=== PATIENT | male | born 1980 | race Caucasian/White ===

== ENCOUNTER 2016-08-14 23:55 | Emergency (ER) | payer MEDICAID ==
[~2016-08-14] VITALS: Ht 175.3 cm; Wt 104.3 kg
[~2016-08-14 23:55] MED LIST: ALBU17AE19 IH
[2016-08-15 00:45] VITALS: BP_SYST 144
--- NOTE | 2016-08-15 00:45 | NUR ---
Patient to ER bed 7 to gown for evaluation. Side rails up. Report given to NEEL Rapp.
--- NOTE | 2016-08-15 00:50 | NUR ---
Patient AAO x4, sitting in bed, c/o migraine HERNANDEZ x 3 days. HERNANDEZ pain 7/10 with nausea and vomiting, photophobia. Patient denies shortness of breath, denies chest pain, denies diarrhea. No acute distress noted. Will continue to monitor.
--- NOTE | 2016-08-15 01:05 | NUR ---
ER at bedside examining patient.
[2016-08-15] MEDS ORDERED: METOCLOPRAMIDE HCL 10 MG/2 ML VIAL IVP ONE (01:15)
[2016-08-15] MEDS ORDERED: NACL 0.9% 1,000 ML IV ONE (01:15)
[2016-08-15 01:27] LABS: BASOPHILS % (AUTO) 0.3 % (0.0-2.0); EOSINOPHILS # (AUTO) 0.4 K/uL (0.0-0.4); EOSINOPHILS % (AUTO) 4.8 % (0.0-4.0); HEMOGLOBIN 15.9 g/dL (14.0-18.0); LYMPHOCYTES # (AUTO) 1.2 K/uL (1.0-5.5); LYMPHOCYTES % (AUTO) 14.3 % (20.5-51.5); MEAN CORPUSCULAR HEMOGLOBIN 30 pg (27-31); MEAN CORPUSCULAR HGB CONC 32 % (32-36); MEAN CORPUSCULAR VOLUME 92 fL (79.0-98.0); MONOCYTES # (AUTO) 0.3 K/uL (0.0-1.0); MONOCYTES % (AUTO) 3.4 % (1.7-9.3); NEUTROPHILS # (AUTO) 6.6 K/uL (1.8-7.7); NEUTROPHILS % (AUTO) 77.2 % (40.0-70.0); PLATELET COUNT (AUTO) 246 K/uL (130-430); RED BLOOD CELL COUNT(AUTO) 5.32 MIL/uL (4.2-6.2); RED CELL DISTRIBUTION WIDTH 12.2 % (9.0-15.0); WHITE BLOOD COUNT (AUTO) 8.5 K/uL (4.8-10.8)
[2016-08-15 01:37] LABS: CALCIUM 9.1 mg/dL (8.4-11.0); CREATININE 1.18 mg/dL (0.55-1.30); POTASSIUM 3.8 mmol/L (3.5-5.1)
[2016-08-15 01:42] LABS: ALBUMIN 4.1 g/dL (3.4-4.8); TOTAL BILIRUBIN 0.5 mg/dL (0.0-1.0); TOTAL PROTEIN, SERUM 7.8 g/dL (6.4-8.3)
--- NOTE | 2016-08-15 02:11 | NUR ---
Patient coughing and c/o shortness of breath and feeling like he "cannot breathe" Md immediately notified, O2 via NC administered per md verbal order. Will medicate per md order.
--- NOTE | 2016-08-15 02:12 | NUR ---
Patient having allergic reaction to reglan that was administered IVP. MD aware. Medicating per md order.
[2016-08-15] MEDS ORDERED: IPRATROPIUM/ALBUTEROL SULFATE 3 ML AMPUL.NEB INH ONE (02:15)
[2016-08-15] MEDS ORDERED: EPINEPHrine 1 MG/ML AMP IM ONE (02:15)
[2016-08-15] MEDS ORDERED: DIPHENHYDRAMINE INJ 50 MG/ML VIAL IVP ONE (02:15)
[2016-08-15] MEDS ORDERED: DIPHENHYDRAMINE INJ 50 MG/ML VIAL ONE (02:16)
[2016-08-15] MEDS ORDERED: EPINEPHrine 1 MG/ML AMP ONE ×2 (02:19→02:23)
[2016-08-15] MEDS ORDERED: HYDROcodone/ACETAMIN 5-325 MG TAB (NORCO/ VICODIN) PO ONE (02:30)
[2016-08-15] MEDS ORDERED: methylPREDNISolone SOD SUCC/PF 62.5 MG/ML VIAL ONE (02:52)
--- NOTE | 2016-08-15 03:00 | NUR ---
Patient states he feels "much better" and "would like to go home, so I can sleep." Md made aware.
[2016-08-15 03:20] VITALS: BP_SYST 130
--- NOTE | 2016-08-15 03:20 | NUR ---
Patient given written and verbal discharge instructions and verbalizes understanding. ER MD discussed with patient the results and treatment provided. Patient in stable condition. ID arm band removed. IV catheter removed intact and dressing applied, no active bleeding. Rx of zofran and norco given. Patient educated on pain management and to follow up with PMD. Pain Scale 0/10. Opportunity for questions provided and answered.
== END 2016-08-15 03:20 | disposition home or self-care (01) ==
LOC: SED 23:55
DX: G43.909 Migraine, unspecified, not intractable, without status migrainosus (principal); T39.1X5A Adverse effect of 4-Aminophenol derivatives, initial encounter; J45.909 Unspecified asthma, uncomplicated; E11.9 Type 2 diabetes mellitus without complications; Z96.643 Presence of artificial hip joint, bilateral; Z88.1 Allergy status to other antibiotic agents; Z88.8 Allergy status to other drugs, medicaments and biological substances; Y92.89 Other specified places as the place of occurrence of the external cause
CPT/HCPCS: 36415; 80053; 85025; 94640; 96361; 96372; 96374; 96375; 99284; J0171; J1200; J2765; J2930; J7030

== ENCOUNTER 2017-04-19 23:56 | Emergency (ER) | payer MEDICAID ==
[~2017-04-19] VITALS: Ht 175.3 cm; Wt 104.3 kg
[2017-04-20 00:24] VITALS: BP_SYST 136
[2017-04-20] MEDS ORDERED: HYDROcodone/ACETAMIN 7.5-325 MG TAB PO ONE (02:30)
[2017-04-20 02:55] VITALS: BP_SYST 132
== END 2017-04-20 02:55 | disposition home or self-care (01) ==
LOC: SED 23:56
DX: S83.91XA Sprain of unspecified site of right knee, initial encounter (principal); J45.909 Unspecified asthma, uncomplicated; G43.909 Migraine, unspecified, not intractable, without status migrainosus; W19.XXXA Unspecified fall, initial encounter; Y93.89 Activity, other specified; Y92.89 Other specified places as the place of occurrence of the external cause; Y99.8 Other external cause status
CPT/HCPCS: 73564; 99284

== ENCOUNTER 2018-02-21 07:47 | Emergency (ER) | payer MEDICAID ==
[~2018-02-21] VITALS: Ht 175.3 cm; Wt 104.3 kg
[2018-02-21 08:03] VITALS: BP_SYST 137
[2018-02-21] MEDS ORDERED: KETOROLAC TROMETHAMINE 60 MG/2 ML VIAL IM ONE (08:30)
[2018-02-21 08:38] VITALS: BP_SYST 137
== END 2018-02-21 08:38 | disposition home or self-care (01) ==
LOC: SED 07:47
DX: M54.5 Low back pain (principal); J45.909 Unspecified asthma, uncomplicated; G43.909 Migraine, unspecified, not intractable, without status migrainosus; Z88.1 Allergy status to other antibiotic agents; Z88.8 Allergy status to other drugs, medicaments and biological substances
CPT/HCPCS: 96372; 99283; J1885

== ENCOUNTER 2018-04-06 20:24 | Emergency (ER) | payer MEDICAID ==
[~2018-04-06] VITALS: Ht 175.3 cm; Wt 104.3 kg
[2018-04-06] MEDS ORDERED: DIPHENHYDRAMINE INJ 50 MG/ML VIAL IM ONE (20:30)
[2018-04-06] MEDS ORDERED: NACL 0.9% 1,000 ML IV ONE (20:30)
[2018-04-06] MEDS ORDERED: IPRATROPIUM/ALBUTEROL SULFATE 3 ML AMPUL.NEB (DUONEB) INH ONE (20:30)
[2018-04-06] MEDS ORDERED: FAMOTIDINE PF 20 MG/2 ML VIAL IVP ONE (20:30)
[2018-04-06] MEDS ORDERED: EPINEPHrine JECT 1 MG/10 ML SYR IM ONE (20:30)
[2018-04-06] MEDS ORDERED: methylPREDNISolone SOD SUCC/PF 62.5 MG/ML VIAL IM ONE (20:30)
[2018-04-06 20:32] VITALS: BP_SYST 165
[2018-04-06] MEDS ORDERED: IPRATROPIUM/ALBUTEROL SULFATE 3 ML AMPUL.NEB (DUONEB) ONE (20:36)
[2018-04-06] MEDS ORDERED: methylPREDNISolone SOD SUCC/PF 62.5 MG/ML VIAL IVP ONE (20:45)
[2018-04-06 21:27] VITALS: BP_SYST 136
== END 2018-04-06 21:26 | disposition home or self-care (01) ==
LOC: SED 20:24
DX: T78.1XXA Other adverse food reactions, not elsewhere classified, initial encounter (principal); G43.909 Migraine, unspecified, not intractable, without status migrainosus; J45.909 Unspecified asthma, uncomplicated; Z88.1 Allergy status to other antibiotic agents; Z88.8 Allergy status to other drugs, medicaments and biological substances; X58.XXXA Exposure to other specified factors, initial encounter
CPT/HCPCS: 94640; 96372; 96374; 96375; 99283; J3490; J7030; J7620

== ENCOUNTER 2018-04-10 16:46 | Emergency (ER) | payer MEDICAID ==
[~2018-04-10] VITALS: Ht 175.3 cm; Wt 104.3 kg
[2018-04-10 17:00] VITALS: BP_SYST 152
[2018-04-10] MEDS ORDERED: HYDROcodone/ACETAMIN 10-325 MG TAB PO ONE (18:00)
[2018-04-10] MEDS ORDERED: KETOROLAC TROMETHAMINE 60 MG/2 ML VIAL IM ONE (18:00)
[2018-04-10 18:35] VITALS: BP_SYST 141
== END 2018-04-10 18:30 | disposition home or self-care (01) ==
LOC: SED 16:46
DX: S39.012A Strain of muscle, fascia and tendon of lower back, initial encounter (principal); J45.909 Unspecified asthma, uncomplicated; G43.909 Migraine, unspecified, not intractable, without status migrainosus; R03.0 Elevated blood-pressure reading, without diagnosis of hypertension; Z88.1 Allergy status to other antibiotic agents; Z88.8 Allergy status to other drugs, medicaments and biological substances; X58.XXXA Exposure to other specified factors, initial encounter; Y93.89 Activity, other specified; Y92.89 Other specified places as the place of occurrence of the external cause; Y99.8 Other external cause status
CPT/HCPCS: 96372; 99283; J1885

== ENCOUNTER 2018-05-25 17:16 | Emergency (ER) | payer MEDICAID ==
[~2018-05-25] VITALS: Ht 175.3 cm; Wt 104.3 kg
[2018-05-25 17:20] VITALS: BP_SYST 164
[2018-05-25] MEDS ORDERED: NACL 0.9% 1,000 ML IV ONE (17:45)
[2018-05-25] MEDS ORDERED: IPRATROPIUM/ALBUTEROL SULFATE 3 ML AMPUL.NEB (DUONEB) INH ONE (17:45)
[2018-05-25] MEDS ORDERED: DEXAMETHASONE SOD PHOSPHATE 10 MG/ML VIAL IM ONE (17:45)
[2018-05-25] MEDS ORDERED: MAGNESIUM SULFATE 1 GM/2 ML VIAL IVP ONE (18:15)
[2018-05-25] MEDS ORDERED: ALBUTEROL SULFATE 0.083% 2.5 MG/3 ML VIAL.NEB INH ONE ×2 (18:15→19:00)
[2018-05-25 19:16] VITALS: BP_SYST 145
== END 2018-05-25 19:15 | disposition home or self-care (01) ==
LOC: SED 17:16
DX: J45.901 Unspecified asthma with (acute) exacerbation (principal); R03.0 Elevated blood-pressure reading, without diagnosis of hypertension; G43.909 Migraine, unspecified, not intractable, without status migrainosus; Z88.1 Allergy status to other antibiotic agents; Z88.8 Allergy status to other drugs, medicaments and biological substances
CPT/HCPCS: 71045; 86710; 94640; 96374; 96375; 99285; J1100; J3475; J7030; J7613; J7620; 36415

== ENCOUNTER 2018-09-02 17:14 | Emergency (ER) | payer MEDICAID ==
[~2018-09-02] VITALS: Ht 175.3 cm; Wt 106.6 kg
[2018-09-02 17:15] VITALS: BP_SYST 152
[2018-09-02 19:28] VITALS: BP_SYST 148
== END 2018-09-02 19:28 | disposition home or self-care (01) ==
LOC: SED 17:14
DX: S83.91XA Sprain of unspecified site of right knee, initial encounter (principal); S83.92XA Sprain of unspecified site of left knee, initial encounter; S73.102A Unspecified sprain of left hip, initial encounter; J45.909 Unspecified asthma, uncomplicated; G43.909 Migraine, unspecified, not intractable, without status migrainosus; Z88.1 Allergy status to other antibiotic agents; Z88.8 Allergy status to other drugs, medicaments and biological substances; W19.XXXA Unspecified fall, initial encounter; Y93.K1 Activity, walking an animal; Y92.89 Other specified places as the place of occurrence of the external cause; Y99.8 Other external cause status
CPT/HCPCS: 73502; 73564; 99283

== ENCOUNTER 2019-08-23 20:21 | Emergency (ER) | payer MEDICAID ==
[~2019-08-23] VITALS: Ht 167.6 cm; Wt 90.7 kg
[2019-08-23 20:22] VITALS: BP_SYST 151
--- NOTE | 2019-08-23 20:25 | NUR ---
Placed in room 1 . Placed on teletypesetter monitor, blood pressure machine and pulse oximeter. To gown for exam. Side rails up.
--- NOTE | 2019-08-23 20:26 | NUR ---
Patient complains of shortness of breath all day today. Per pt, his asthma has been acting up lately and was at [facility] when he became short of breath. Pt satting at 100% RA. NO other injuries/complaints per patient or noted.
[2019-08-23] MEDS ORDERED: IPRATROPIUM/ALBUTEROL SULFATE 3 ML AMPUL.NEB (DUONEB) INH ONE (20:30)
--- NOTE | 2019-08-23 20:33 | NUR ---
RT at bedside administering breathing treatment. Pt tolerated well.
[2019-08-23 20:50] LABS: BASOPHILS # (AUTO) 0.1 K/uL (0.0-0.2); EOSINOPHILS # (AUTO) 0.5 K/uL (0.0-0.4); EOSINOPHILS % (AUTO) 7.2 % (0.0-4.0); HEMATOCRIT 44.9 % (36-54); HEMOGLOBIN 15.1 g/dL (14.0-18.0); LYMPHOCYTES # (AUTO) 2.8 K/uL (1.0-5.5); LYMPHOCYTES % (AUTO) 39.5 % (20.5-51.5); MEAN CORPUSCULAR HEMOGLOBIN 31 pg (27-31); MEAN CORPUSCULAR HGB CONC 34 % (32-36); MEAN CORPUSCULAR VOLUME 92 fL (79.0-98.0); MONOCYTES # (AUTO) 0.4 K/uL (0.0-1.0); MONOCYTES % (AUTO) 5.6 % (1.7-9.3); NEUTROPHILS # (AUTO) 3.3 K/uL (1.8-7.7); NEUTROPHILS % (AUTO) 46.7 % (40.0-70.0); PLATELET COUNT (AUTO) 223 K/uL (130-430); RED BLOOD CELL COUNT(AUTO) 4.87 MIL/uL (4.2-6.2); RED CELL DISTRIBUTION WIDTH 13.1 % (9.0-15.0); WHITE BLOOD COUNT (AUTO) 7.1 K/uL (4.8-10.8)
--- NOTE | 2019-08-23 20:58 | NUR ---
ER Dr. Beebe at bedside examining patient.
[2019-08-23 21:11] LABS: CALCIUM 8.4 mg/dL (8.4-11.0); CREATININE 1.34 mg/dL (0.55-1.30); PROTHROMBIN TIME 9.9 SECS (9.5-12.5)
[2019-08-23] MEDS ORDERED: methylPREDNISolone SOD SUCC/PF 62.5 MG/ML VIAL IVP ONE (21:15)
[2019-08-23] MEDS ORDERED: RACEPINEPHRINE HCL 0.5 ML VIAL.NEB INH ONE (21:15)
[2019-08-23 21:17] LABS: ALBUMIN 3.9 g/dL (3.4-4.8); TOTAL BILIRUBIN 0.5 mg/dL (0.0-1.0)
[2019-08-23 21:24] LABS: POTASSIUM 4.4 mmol/L (3.5-5.1)
--- NOTE | 2019-08-23 21:35 | NUR ---
Patient reported "a tickle in the back of throat and feels like it's closing in again." O2 saturation at 100% NC @ 2L. Notified ER MD of concern. Orders received.
[2019-08-23] MEDS ORDERED: DIPHENHYDRAMINE INJ 50 MG/ML VIAL IVP ONE (21:45)
--- NOTE | 2019-08-23 21:56 | NUR ---
JOVANNI MD at bedside re-examining patient.
[2019-08-23 23:56] VITALS: BP_SYST 145
--- NOTE | 2019-08-23 23:56 | NUR ---
Patient given written and verbal discharge instructions and verbalizes understanding. ER MD discussed with patient the results and treatment provided. Patient in stable condition. ID arm band removed. IV catheter removed intact and dressing applied, no active bleeding. Rx of Prednisone given. Patient educated on pain management and to follow up with PMD. Pain Scale 0. Opportunity for questions provided and answered. Medication side effect fact sheet provided.
== END 2019-08-23 23:56 | disposition home or self-care (01) ==
LOC: SED 20:21
DX: J45.901 Unspecified asthma with (acute) exacerbation (principal); T78.2XXA Anaphylactic shock, unspecified, initial encounter; Z88.1 Allergy status to other antibiotic agents; Z88.8 Allergy status to other drugs, medicaments and biological substances
CPT/HCPCS: 36415; 71045; 80053; 83880; 84484; 85025; 85379; 85610; 93005; 94640; 96374; 96375; 99285; J1200; J2930

== ENCOUNTER 2019-08-27 20:30 | Emergency (ER) | payer MEDICAID ==
[~2019-08-27] VITALS: Ht 175.3 cm; Wt 99.8 kg
--- NOTE | 2019-08-27 20:34 | NUR ---
Patient to ER bed 8 to gown for evaluation. Side rails up. Report given to EDGARDO SHAIKH.
[2019-08-27 20:35] VITALS: BP_SYST 143
--- NOTE | 2019-08-27 20:40 | NUR ---
JOVANNI Portillo at bedside examining patient.
[2019-08-27] MEDS ORDERED: IPRATROPIUM/ALBUTEROL SULFATE 3 ML AMPUL.NEB (DUONEB) INH ONE (20:45)
--- NOTE | 2019-08-27 20:57 | NUR ---
pt in [facility], able to communicate needs. Some dyspnea and jensen wheezing noted. pt states that he has this difficulty breathing freaquently. VSS
--- NOTE | 2019-08-27 21:26 | NUR ---
nasal swabs for both Covid and Influenza
[2019-08-27 21:33] VITALS: BP_SYST 143
--- NOTE | 2019-08-27 21:34 | NUR ---
Patient given written and verbal discharge instructions and verbalizes understanding. ER MD Dr. Butler discussed with patient the results and treatment provided. Patient in stable condition. ID arm band removed. IV catheter removed intact and dressing applied, no active bleeding. Rx of Symbicort given. Patient educated on pain management and to follow up with PMD. Pain Scale 0/10. Opportunity for questions provided and answered. Medication side effect fact sheet provided.
== END 2019-08-27 21:33 | disposition home or self-care (01) ==
LOC: SED 20:30
DX: J45.901 Unspecified asthma with (acute) exacerbation (principal); Z20.828 Contact with and (suspected) exposure to other viral communicable diseases; Z88.1 Allergy status to other antibiotic agents; Z88.8 Allergy status to other drugs, medicaments and biological substances
CPT/HCPCS: 71045; 86710; 94640; 99284; U0003; 36415

== ENCOUNTER 2019-12-29 14:43 | Emergency (ER) | payer MEDICAID ==
[~2019-12-29] VITALS: Ht 175.3 cm; Wt 113.4 kg
[2019-12-29 14:50] VITALS: BP_SYST 152
--- NOTE | 2019-12-29 14:54 | NUR ---
Patient to ER bed 04 to gown for evaluation. Side rails up.
--- NOTE | 2019-12-29 15:10 | NUR ---
Pt came to ER for low back pain after attempting ot lift box, states he heard a pop rates pain 08/29. Pt resting in [facility], awaiting MD, no other complaints
--- NOTE | 2019-12-29 15:15 | NUR ---
ER at bedside examining patient.
[2019-12-29] MEDS ORDERED: KETOROLAC TROMETHAMINE 60 MG/2 ML VIAL IM ONE (15:30)
[2019-12-29 16:00] VITALS: BP_SYST 152
--- NOTE | 2019-12-29 16:01 | NUR ---
Patient given written and verbal discharge instructions and verbalizes understanding. ER MD discussed with patient the results and treatment provided. Patient in stable condition. ID arm band removed. Rx of [place] given. Patient educated on pain management and to follow up with PMD. Pain Scale 2/10. Opportunity for questions provided and answered. Medication side effect fact sheet provided.
== END 2019-12-29 16:01 | disposition home or self-care (01) ==
LOC: SED 14:43
DX: M54.5 Low back pain (principal); J45.909 Unspecified asthma, uncomplicated; G43.909 Migraine, unspecified, not intractable, without status migrainosus; Z88.1 Allergy status to other antibiotic agents
CPT/HCPCS: 81002; 96372; 99283; J1885

== ENCOUNTER 2020-09-08 11:49 | Emergency (ER) | payer MEDICAID ==
[~2020-09-08] VITALS: Ht 175.3 cm; Wt 95.3 kg
[2020-09-08 11:54] VITALS: BP_SYST 154
--- NOTE | 2020-09-08 11:54 | NUR ---
Patient to ER bed 04 to gown for evaluation. Side rails up.
--- NOTE | 2020-09-08 11:56 | NUR ---
PT CAME IN FROM HOME C/O SOB, COUGHING UP CLEAR PHLEM X 1 WEEK, WORSENED YESTERDAY. PT PRESENTS WITH SOB, WHEEZING, CHEST PRESSURE. PT IS AMBULATORY, AAOX4
[2020-09-08] MEDS ORDERED: ALBUTEROL SULFATE 0.083% 2.5 MG/3 ML VIAL.NEB INH ONE ×3 (11:59→12:15)
--- NOTE | 2020-09-08 12:00 | NUR ---
ER DR. REYES AT THE BED SIDE EXAMINING PT
--- NOTE | 2020-09-08 12:05 | NUR ---
RT AT THE BEDSIDE
--- NOTE | 2020-09-08 14:00 | NUR ---
PT RESTING IN BED, NO S/SX OF DISTRESS V/S STABLE
[2020-09-08 15:18] LABS: BASOPHILS % (AUTO) 0.1 % (0.0-2.0); HEMATOCRIT 44.8 % (36-54); HEMOGLOBIN 15.3 g/dL (14.0-18.0); LYMPHOCYTES # (AUTO) 1.7 K/uL (1.0-5.5); LYMPHOCYTES % (AUTO) 11.9 % (20.5-51.5); MEAN CORPUSCULAR HEMOGLOBIN 31 pg (27-31); MEAN CORPUSCULAR HGB CONC 34 % (32-36); MEAN CORPUSCULAR VOLUME 92 fL (79.0-98.0); MONOCYTES # (AUTO) 0.5 K/uL (0.0-1.0); MONOCYTES % (AUTO) 3.7 % (1.7-9.3); NEUTROPHILS % (AUTO) 84.3 % (40.0-70.0); PLATELET COUNT (AUTO) 270 K/uL (130-430); RED BLOOD CELL COUNT(AUTO) 4.89 MIL/uL (4.2-6.2); RED CELL DISTRIBUTION WIDTH 12.7 % (9.0-15.0); WHITE BLOOD COUNT (AUTO) 14.2 K/uL (4.8-10.8)
[2020-09-08 15:24] LABS: PROTHROMBIN TIME 10.4 SECS (9.5-12.5)
[2020-09-08 15:27] LABS: CALCIUM 10.1 mg/dL (8.4-11.0); CREATININE 1.37 mg/dL (0.55-1.30)
[2020-09-08 15:32] LABS: ALBUMIN 4.2 g/dL (3.4-4.8); TOTAL BILIRUBIN 0.4 mg/dL (0.0-1.0)
--- NOTE | 2020-09-08 16:20 | NUR ---
PT RESTING IN BED, NO S/SX OF DISTRESS, V/S STABLE
--- NOTE | 2020-09-08 17:50 | NUR ---
Patient transported to radiology via WC, accompanied by STAFF.
[2020-09-08] MEDS ORDERED: IOHEXOL 350 mgI/mL, 150 ML INFUS..BTL IV ONE (17:52)
[2020-09-08] MEDS ORDERED: predniSONE 20 MG TABLET PO ONE (19:15)
[2020-09-08] MEDS ORDERED: PRED20TA PO (19:16)
--- NOTE | 2020-09-08 19:21 | NUR ---
REPORT GIVEN TO NEEL GARCIA FOR CONTINUING CARE
--- NOTE | 2020-09-08 19:28 | NUR ---
RECEIEVED REPORT FROM NEEL VASQUEZ TO ASSUME ALL CARE OF PATIENT. PATIENT STATING HE STILL FEELS SOMETHING IN HIS CHEST. SATURATION 99% ON ROOM AIR. PATIENT STATED HE HAS HAD THIS BEFORE. AAOX4. VSS. AWAITING FOR DISPOSITION.
[2020-09-08 19:52] VITALS: BP_SYST 144
--- NOTE | 2020-09-08 19:52 | NUR ---
Patient given written and verbal discharge instructions and verbalizes understanding. DR. DESIRAE BAIG MD discussed with patient the results and treatment provided. Patient in stable condition. ID arm band removed. IV catheter removed intact and dressing applied, no active bleeding. Rx of PREDNISONE given. Patient educated on pain management and to follow up with PMD. Pain Scale 0/10 Opportunity for questions provided and answered. Medication side effect fact sheet provided.
== END 2020-09-08 19:52 | disposition home or self-care (01) ==
LOC: SED 11:49
DX: J45.901 Unspecified asthma with (acute) exacerbation (principal); R07.89 Other chest pain; Z88.0 Allergy status to penicillin; Z88.8 Allergy status to other drugs, medicaments and biological substances
CPT/HCPCS: 36415; 36600; 71045; 71275; 76376; 80053; 82803; 83880; 84484; 85025; 85379; 85610; 93005; 94640; 99285; J7512; J7613; Q9967

== ENCOUNTER 2021-02-11 09:08 | Emergency (ER) | payer MEDICAID, SELFPAY ==
[~2021-02-11] VITALS: Ht 175.3 cm; Wt 102.1 kg
[~2021-02-11 09:08] MED LIST changes: +PRED20TA PO
[2021-02-11 09:25] VITALS: BP_SYST 152
[2021-02-11] MEDS ORDERED: IPRATROPIUM BROM 0.5 MG/2.5 ML VIAL.NEB (ATROVENT) INH ONE ×2 (09:38→09:45)
[2021-02-11] MEDS ORDERED: ALBUTEROL SULFATE 0.083% 2.5 MG/3 ML VIAL.NEB INH ONE ×2 (09:38→09:45)
[2021-02-11] MEDS ORDERED: methylPREDNISolone SOD SUCC/PF 62.5 MG/ML VIAL IVP ONE (09:45)
[2021-02-11] MEDS ORDERED: NACL 0.9% 1,000 ML IV ONE (09:45)
[2021-02-11] MEDS ORDERED: ZIT250 PO (10:36)
[2021-02-11] MEDS ORDERED: PRED50TA PO (10:36)
== END 2021-02-11 11:45 | disposition home or self-care (01) ==
LOC: SED 09:08
DX: J45.901 Unspecified asthma with (acute) exacerbation (principal); F12.90 Cannabis use, unspecified, uncomplicated; Z88.1 Allergy status to other antibiotic agents; Z88.8 Allergy status to other drugs, medicaments and biological substances; Z79.899 Other long term (current) drug therapy
CPT/HCPCS: 71045; 94640; 96361; 96374; 99283; J2930; J7030; J7613

== ENCOUNTER 2021-04-27 12:06 | Emergency (ER) | payer MEDICAID, SELFPAY ==
[~2021-04-27] VITALS: Ht 175.3 cm; Wt 104.3 kg
[~2021-04-27 12:06] MED LIST changes: +PRED50TA PO; +ZIT250 PO
--- NOTE | 2021-04-27 12:10 | NUR ---
Pt. dropped off with c/o asmatha attack has been having SOB since yesterday taking steroids and Z pack with no improvement
--- NOTE | 2021-04-27 12:10 | NUR ---
Patient to ER bed 7 to for evaluation. O2 sat 98% on RA. Assumed care.
--- NOTE | 2021-04-27 12:25 | NUR ---
RT here for breathing treatment
[2021-04-27 12:38] VITALS: BP_SYST 136
--- NOTE | 2021-04-27 12:50 | NUR ---
ER at bedside examining patient.
[2021-04-27] MEDS ORDERED: IPRATROPIUM BROM 0.5 MG/2.5 ML VIAL.NEB (ATROVENT) INH ONE (13:00)
[2021-04-27] MEDS ORDERED: ALBUTEROL SULFATE 0.083% 2.5 MG/3 ML VIAL.NEB INH ONE (13:00)
--- NOTE | 2021-04-27 13:00 | NUR ---
radiology at bedside for chest xray
--- NOTE | 2021-04-27 13:05 | NUR ---
moved pt. to bed
[2021-04-27] MEDS ORDERED: EPIN0.3P3 IM (13:54)
[2021-04-27] MEDS ORDERED: LORA-259 PO (13:54)
[2021-04-27] MEDS ORDERED: EPINEPHrine 1 MG/ML AMP IM ONE (14:00)
--- NOTE | 2021-04-27 14:06 | NUR ---
pt. still feels SOB epinephrine given per Dr. Bar, Dr. Bar aware of pulse
[2021-04-27 14:54] VITALS: BP_SYST 112
--- NOTE | 2021-04-27 14:55 | NUR ---
Patient given written and verbal discharge instructions and verbalizes understanding. ER Dr. Bar discussed with patient the results and treatment provided. Patient in stable condition. ID arm band removed. Rx of epipen and ativan given. Patient educated on pain management and to follow up with PMD. Pain Scale 0. Opportunity for questions provided and answered. Medication side effect fact sheet provided.
== END 2021-04-27 14:55 | disposition home or self-care (01) ==
LOC: SED 12:06
DX: J45.901 Unspecified asthma with (acute) exacerbation (principal); Z88.1 Allergy status to other antibiotic agents; Z88.8 Allergy status to other drugs, medicaments and biological substances; Z79.899 Other long term (current) drug therapy; J45.909 Unspecified asthma, uncomplicated
CPT/HCPCS: 71045; 94640; 96372; 99283; J0171

== ENCOUNTER 2021-05-07 17:43 | Emergency (ER) | payer MEDICAID, SELFPAY ==
[~2021-05-07] VITALS: Ht 175.3 cm; Wt 104.3 kg
[~2021-05-07 17:43] MED LIST changes: +EPIN0.3P3 IM; +LORA-259 PO
--- NOTE | 2021-05-07 17:54 | NUR ---
Patient to ER bed 05 to gown for evaluation. Side rails up.
[2021-05-07 17:55] VITALS: BP_SYST 149
[2021-05-07] MEDS ORDERED: KETOROLAC TROMETHAMINE 30 MG VIAL IVP ONE (18:15)
[2021-05-07] MEDS ORDERED: DIPHENHYDRAMINE INJ 50 MG/ML VIAL IVP ONE (18:15)
--- NOTE | 2021-05-07 18:59 | NUR ---
patient re-evaluate c/o headache unchanged 10/29 Dr Young notified.
[2021-05-07] MEDS ORDERED: MORPHINE 4 MG INJ. 4 MG/ML VIAL IVP ONE (19:00)
--- NOTE | 2021-05-07 19:09 | NUR ---
report given to nurse Rekha all questions answered.
--- NOTE | 2021-05-07 19:22 | NUR ---
PAIN MEDICATION GIVEN PER ORDER.
[2021-05-07] MEDS ORDERED: HYDR-3917 PO (19:33)
--- NOTE | 2021-05-07 20:11 | NUR ---
Patient given written and verbal discharge instructions and verbalizes understanding. ER MD discussed with patient the results and treatment provided. Patient in stable condition. ID arm band removed. IV catheter removed intact and dressing applied, no active bleeding. Rx of [place] given. Patient educated on pain management and to follow up with PMD. Pain Scale 4/10. Opportunity for questions provided and answered.
== END 2021-05-07 20:11 | disposition home or self-care (01) ==
LOC: SED 17:43
DX: G43.909 Migraine, unspecified, not intractable, without status migrainosus (principal); J45.909 Unspecified asthma, uncomplicated; Z88.1 Allergy status to other antibiotic agents; Z88.8 Allergy status to other drugs, medicaments and biological substances; Z79.899 Other long term (current) drug therapy
CPT/HCPCS: 96374; 96375; 99284; J1200; J1885; J2270

== ENCOUNTER 2021-06-13 08:56 | Emergency (ER) | payer MEDICAID ==
[~2021-06-13] VITALS: Ht 180.3 cm; Wt 104.3 kg
[~2021-06-13 08:56] MED LIST changes: +HYDR-3917 PO
[2021-06-13 09:00] VITALS: BP_SYST 156
--- NOTE | 2021-06-13 09:12 | NUR ---
Dr. Brock at bedside examining pt.
--- NOTE | 2021-06-13 09:18 | NUR ---
pt arrived at ed with complains of lower back back, 10/10 pain scale. Pain is constant, sharp burning that radiates down to right leg. Patient was on latter yesterday at home working on garage door and hyperextended back while on latter. Patient was brought to ED by mother via vehicle. ambulated unassisted into ED. pt AOx4VS are stable, lower bilateral strength is WNL, has full rage of motion, with brisk cap refill on lower extremeties, bilateral pedal pulses present
[2021-06-13] MEDS ORDERED: HYDR-3917 PO (09:21)
[2021-06-13] MEDS ORDERED: CYCL10TA24 PO (09:22)
[2021-06-13] MEDS ORDERED: HYDROcodone/ACETAMIN 5-325 MG TAB (NORCO/ VICODIN) PO ONE (09:30)
[2021-06-13 10:13] VITALS: BP_SYST 132
--- NOTE | 2021-06-13 10:14 | NUR ---
Patient given written and verbal discharge instructions and verbalizes understanding. ER MD discussed with patient the results and treatment provided. Patient in stable condition. ID arm band removed. Rx of [place] and Muscle Relaxant given. Patient educated on pain management and to follow up with PMD. Pain Scale . Opportunity for questions provided and answered. Medication side effect fact sheet provided.
== END 2021-06-13 10:14 | disposition home or self-care (01) ==
LOC: SED 08:56
DX: S33.5XXA Sprain of ligaments of lumbar spine, initial encounter (principal); J45.909 Unspecified asthma, uncomplicated; G43.809 Other migraine, not intractable, without status migrainosus; M87.88 Other osteonecrosis, other site; W19.XXXA Unspecified fall, initial encounter; Y93.89 Activity, other specified; Y92.89 Other specified places as the place of occurrence of the external cause; Y99.8 Other external cause status; Z88.1 Allergy status to other antibiotic agents; Z88.8 Allergy status to other drugs, medicaments and biological substances
CPT/HCPCS: 99283

== ENCOUNTER 2022-01-05 21:46 | Emergency (ER) | payer MEDICAID ==
[~2022-01-05] VITALS: Ht 175.3 cm; Wt 102.1 kg
[~2022-01-05 21:46] MED LIST changes: +CYCL10TA24 PO
--- NOTE | 2022-01-05 22:55 | NUR ---
MD with patient in triage.
[2022-01-05] MEDS ORDERED: NACL 0.9% 1,000 ML IV ONE (23:00)
[2022-01-05] MEDS ORDERED: KETOROLAC TROMETHAMINE 30 MG VIAL IVP ONE (23:00)
[2022-01-05] MEDS ORDERED: DIPHENHYDRAMINE INJ 50 MG/ML VIAL IVP ONE (23:00)
[2022-01-05 23:15] VITALS: BP_SYST 147
--- NOTE | 2022-01-05 23:15 | NUR ---
Pt from home with c/o headache that started today and N/V. Pt reports 10/10 pain, and photophobia. pt has HX of migraines.
[2022-01-05] MEDS ORDERED: KETOROLAC TROMETHAMINE 60 MG/2 ML VIAL IM ONE (23:30)
[2022-01-05] MEDS ORDERED: DIPHENHYDRAMINE INJ 50 MG/ML VIAL IM ONE (23:30)
--- NOTE | 2022-01-06 | NUR ---
Patient to ER bed HB1 to gown for evaluation. Side rails up.
[2022-01-06] MEDS ORDERED: KETO10TA2 PO (03:38)
[2022-01-06 03:59] VITALS: BP_SYST 155
--- NOTE | 2022-01-06 03:59 | NUR ---
Patient given written and verbal discharge instructions and verbalizes understanding. ER Dr. Zavaleta discussed with patient the results and treatment provided. Patient in stable condition. ID arm band removed. IV catheter removed intact and dressing applied, no active bleeding. Rx of toradol given. Patient educated on pain management and to follow up with PMD. Pain Scale 0. Opportunity for questions provided and answered. Medication side effect fact sheet provided.
== END 2022-01-06 03:59 | disposition home or self-care (01) ==
LOC: SED 21:46
DX: G43.909 Migraine, unspecified, not intractable, without status migrainosus (principal); R11.2 Nausea with vomiting, unspecified; J45.909 Unspecified asthma, uncomplicated; Z88.1 Allergy status to other antibiotic agents; Z88.8 Allergy status to other drugs, medicaments and biological substances; Z79.899 Other long term (current) drug therapy
CPT/HCPCS: 99284; 96374; 96361; 96375; J1200; J1885; J7030

== ENCOUNTER 2023-03-27 15:36 | Emergency (ER) | payer MEDICAID ==
[~2023-03-27] VITALS: Ht 175.3 cm; Wt 102.1 kg
[~2023-03-27 15:36] MED LIST changes: +KETO10TA2 PO
[2023-03-27 15:50] VITALS: BP_SYST 138; PULSE 87; RESP 17; TEMP 98; O2SAT 99
[2023-03-27] MEDS ORDERED: MECLIZINE HCL 25 MG TABLET (ANITVERT) PO ONE (16:00)
[2023-03-27] MEDS ORDERED: ONDANSETRON 4 MG ODT TAB PO ONE (16:00)
[2023-03-27 17:29] LABS: BASOPHILS % (AUTO) 0.5 % (0.0-2.0); EOSINOPHILS # (AUTO) 0.2 K/uL (0.0-0.4); HEMATOCRIT 45.8 % (36-54); HEMOGLOBIN 16.1 g/dL (14.0-18.0); LYMPHOCYTES # (AUTO) 1.7 K/uL (1.0-5.5); LYMPHOCYTES % (AUTO) 23.7 % (20.5-51.5); MEAN CORPUSCULAR HEMOGLOBIN 32 pg (27-31); MEAN CORPUSCULAR HGB CONC 35 % (32-36); MEAN CORPUSCULAR VOLUME 91 fL (79.0-98.0); MONOCYTES # (AUTO) 0.5 K/uL (0.0-1.0); MONOCYTES % (AUTO) 6.5 % (1.7-9.3); NEUTROPHILS # (AUTO) 4.7 K/uL (1.8-7.7); NEUTROPHILS % (AUTO) 66.3 % (40.0-70.0); PLATELET COUNT (AUTO) 258 K/uL (130-430); RED BLOOD CELL COUNT(AUTO) 5.03 MIL/uL (4.2-6.2)
[2023-03-27 17:37] LABS: ANION GAP 11 (5-15); CALCIUM 9.2 mg/dL (8.4-11.0); CARBON DIOXIDE 26 mmol/L (23-29); CHLORIDE 104 mmol/L (98-107); GFR AFRICAN AMERICAN 86 mL/min (>90); GLUCOSE 106 mg/dL (74-106); SODIUM SERUM 141 mmol/L (136-145); UREA NITROGEN, BLOOD 17 mg/dL (8-21)
[2023-03-27 17:39] LABS: GFR NON AFRICAN-AMERICAN 71 mL/min (>90); INR 1.1 (0.80-1.20)
[2023-03-27 17:48] LABS: ALANINE AMINOTRANSFERASE 39 U/L (12-78); ALBUMIN 4.1 g/dL (3.4-4.8); ASPARTATE AMINOTRANSFERASE 23 U/L (10-37); BILIRUBIN,DIRECT 0.1 mg/dL (0.0-0.3); TOTAL BILIRUBIN 0.5 mg/dL (0.0-1.0); TOTAL PROTEIN, SERUM 7.6 g/dL (6.4-8.3)
[2023-03-27] MEDS ORDERED: CLON0.2T PO (18:07)
[2023-03-27] MEDS ORDERED: MECL-261 PO (18:07)
[2023-03-27] MEDS ORDERED: cloNIDine HCL 0.1 MG TABLET PO ONE (18:15)
[2023-03-27 18:42] VITALS: BP_SYST 148; PULSE 87; RESP 17; TEMP 98; O2SAT 99
== END 2023-03-27 18:14 | disposition home or self-care (01) ==
LOC: SED 15:36
DX: R42 Dizziness and giddiness (principal); J45.909 Unspecified asthma, uncomplicated; I10 Essential (primary) hypertension; Z88.1 Allergy status to other antibiotic agents; Z88.8 Allergy status to other drugs, medicaments and biological substances; Z79.899 Other long term (current) drug therapy
CPT/HCPCS: 99285; 70450; 71045; 80076; 80048; 85025; 85610; 85730; 84484; 36415; 93005; 76376; J8597; Q0162